=== PATIENT | female | born 1985 | race Caucasian/White ===

== ENCOUNTER → 2019-10-06 | Outpatient (CLI) | payer OTHER ==
[2019-10-06 14:13] VITALS: BP 140/94
--- NOTE | 2019-10-06 14:13 | ER RDC ASSESSMENT REPORT ---
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 - Symptoms Subjective Fever([place] feverish): No Chills: No Muscule Aches: No Runny Nose: No Sore Throat: No Cough (New or worsening chronic cough): No Shortness of breath: No Nausea or Vomiting: Yes --How many day(s)?: Had nausea vomiting on Wednesday and Wednesday of this week Headache: No Abdominal Pain: No Diarrhea(3 or more loose stools in last 24 hours): No - Do you have any of the following Chronic lung disease: Asthma or emphysema or COPD: No Cystic Fibrosis: No Diabetes: Yes Diabetes Comment: Diabetes type 1 High Blood Pressure: No Cardiovascular Disease: No Chronic Kidney Disease: No Chronic Liver Disease: No Chronic blood disorder like Sickle Cell Disease: No Weak immune system due to disease or medication: No Neurologic condition that limits movement: No Developmental delay - Moderate to Severe: No Recent (within past 2 weeks) or current : No Morbid Obesity (>100 pounds over ideal weight): No Obesity Comment: Height 5 feet 7 inches weight 280 pounds Other Comment: She has a history of hypothyroidism also - Objective Temperature: 98.4 F Pulse Rate: 89 Respiratory Rate: 20 Blood Pressure: 140/94 O2 Sat by Pulse Oximetry: 99 Objective: Given above, testing performed: If Testing Performed: Test Specimen Type Sent to General - General Information source: Patient Notes: Patient here at [facility] for COVID testing currently in the emergency room with symptoms of upper respiratory illness fever chills abdominal pain diarrhea. 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 Patient reports only symptoms of nausea vomiting and some diarrhea on Wednesday and Wednesday of this week otherwise no other problems. Patient has a history of type 1 diabetes and hypothyroidism. Physical Exam - General General appearance: Appears well, Alert In distress: None Notes: PHYSICAL EXAMINATION: GENERAL: Well-appearing and in no acute distress. HEAD: Atraumatic, normocephalic. EYES: sclera anicteric, conjunctiva are normal. ENT: nares patent. Moist mucous membranes. NECK: Normal range of motion, supple without lymphadenopathy LUNGS: CTAB and equal. No wheezes rales or rhonchi. Resp even and unlabored. Lung sounds clear. HEART: Regular rate and rhythm without murmurs ABDOMEN: Soft, nontender, normal bowel sounds, no guarding. EXTREMITIES: No cyanosis. NEUROLOGICAL: Normal speech. PSYCH: Normal mood, normal affect. SKIN: Warm, Dry, normal turgor, no rashes or lesions noted - Respiratory Respiratory status: No respiratory distress Breath sounds: Normal Diagnostic Results Laboratory Results: Patient informed of negative rapid strep results . Patient also informed of positive influenza B results. Patient symptoms have improved since initial Wednesday and Wednesday. States is better today. Declines medication for flu at this time. pending strep culture pending COVID testing results. Patient provided instructions on COVID to include: As a person under investigation for Covid 19, the [facility], division of public health advises you to adhere to the following guidance until your test results are reported to you. If your test result is positive, you will receive additional information from your provider and your local health department at that time. Remain at home until you are cleared by the health provider or public health authorities. Keep a log of visitors to your home, notify any visitors to your home of your isolation status. If you plan to move to a new address or leave the formerly [facility], notify the local health department in your County. Call your doctor or seek care if you have an urgent medical need. Before seeking medical care, call ahead to get instructions from the provider before arriving at the medical office clinic or hospital. Notify them that you are being tested for the virus that causes Covid 19 so that arrangements can be made, as necessary, to prevent transmission to others in the healthcare setting. Next, notify the local health department in your county. If a medical emergency arises and you need to call 911, inform the first responders that you are being tested for the virus that causes Covid 19. Next, notify the local health department in your county. Patient Education/Counseling Counseling/Education: Patient presents with upper respiratory symptoms worrisome for possible Covid 19. Patient does not have emergency worring symptoms such as difficulty breathing, shortness of breath, chest pain, pressure, confusion or cyanosis. Patient appears suitable for discharge. Patient instructed to follow up with PCP in [facility]. To ED for persistent or worsening symptoms. Patient's vital signs are stable and patient is nontoxic in appearance. Good return precautions have been discussed with patient, patient verbalized understanding and is agreeable with discharge plan of care at this time. RDC Discharge - Discharge Clinical Impression: Influenza B, COVID - 19 SCREENING Condition: Stable Disposition: Home; Selfcare
[2019-10-06 14:27] LABS: A TYPE INFLUENZA AG NEGATIVE (NEGATIVE); B INFLUENZA AG POSITIVE (NEGATIVE)
== END ==
LOC: EDBD 13:00 → RDC 13:00
PROVIDERS: ATTEND Nurse Practitioner Family
DX: J11.89 Influenza due to unidentified influenza virus with other manifestations (principal); Z20.828 Contact with and (suspected) exposure to other viral communicable diseases; R11.0 Nausea; E10.9 Type 1 diabetes mellitus without complications; E03.9 Hypothyroidism, unspecified; R10.9 Unspecified abdominal pain; R50.9 Fever, unspecified; R19.7 Diarrhea, unspecified
CPT/HCPCS: 87070; 87635; 87804; 87880; 99201